=== PATIENT | female | born 1950 | race Caucasian/White ===

== ENCOUNTER 2017-10-15 12:18 | Emergency (ER) | payer OTHER, BC ==
--- OUTSIDE RECORDS SUMMARY | 2017-10-15 12:20 | XMS REPORT | Clinical Summary ---
:1950 Author Organization [facility] Address [address] [place] [address] Care Team Providers Name Role Phone Tyson Ocampo MD Primary Care Provider Allergies Active Allergy Reactions Severity Noted Date Comments Lisinopril Anaphylaxis High 01/31/2016 Penicillins Itching 01/31/2016 Sulfa (Sulfonamide Antibiotics) Anaphylaxis High 01/31/2016 Current Medications Prescription Sig. Disp. Refills Start Date End Date Status atenolol (TENORMIN) TAKE 1 TABLET 60 tablet 3 10/10/2017 Active 25 MG BY MOUTH tabletIndications: TWICE A DAY Essential hypertension diphenoxylate-atrop Take 1 tablet 04/15/2017 Discontinued ine (LOMOTIL) by mouth. 2.5-0.025 mg per tablet LOPERAMIDE HCL Take by 04/15/2017 Discontinued (IMODIUM A-D ORAL) mouth. atenolol (TENORMIN) Take 1 tablet 60 tablet 2 04/15/2017 07/09/2017 Discontinued 25 MG (25 mg total) tabletIndications: by mouth 2 Essential (two) times a hypertension day for 30 days. atenolol (TENORMIN) TAKE 1 TABLET 60 tablet 2 07/09/2017 10/10/2017 Discontinued 25 MG BY MOUTH tabletIndications: TWICE A DAY Essential hypertension Active Problems Problem Noted Date LFT elevation 04/17/[address] 09/05/2016 HLD (hyperlipidemia) 01/31/2016 Fatty liver 01/31/2016 Overview: [facility] 02/11, Gallstones 01/31/2016 Overview: [facility] 02/11, asymptomatic Chronic radiation cystitis 01/31/2016 Overview: [facility] CKD (chronic kidney disease) stage 3, GFR 30-59 ml/min 01/31/2016 Overview: Onset: 02/23/2015 - 1.8 Essential hypertension 01/31/2016 History of DVT (deep vein thrombosis) 02/22/2014 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 Espana at [facility] Cycle 4 04/26/2013 Done Cycle 5 05/17/2013 Done 05/27/2013 - presented to [facility] with ruptured diverticulitis, s/p exlap, loop colostomy (SANAM/Julio César); cycle 6 not given due to ruptured diverticulitis 10/2013 - s/p exlap, colostomy reversal by Dr. Colby at [facility], no evidence of disease recurrence at time of surgery 02/01/2014 - s/p exlap, end colostomy for colovesical fistula with Dr. Colby Resolved Problems Problem Noted Date Resolved Date Colostomy in place 09/05/2016 04/15/2017 Encounters Date Type Specialty Care Team Description 10/10/2017 Refill Family Tyson Rosario Essential hypertension 07/31/2017 Office Visit Tyson Lawrence, Essential hypertension (Primary Dx); Hyperlipidemia, unspecified hyperlipidemia type; CKD (chronic kidney disease) stage 3, GFR 30-59 ml/min; Chronic radiation cystitis; History of endometrial cancer; Excoriation 07/09/2017 Refill Tyson Lawrence Essential hypertension 04/30/2017 Office Visit Tyson Lawrence, Well adult health check (Primary Dx); Depression screen; Essential hypertension; CKD (chronic kidney disease) stage 3, GFR 30-59 ml/min; LFT elevation; Excoriation; Bilateral impacted cerumen 04/15/2017 Lab Lab Tyson Ocampo, Essential hypertension; Hyperlipidemia, unspecified hyperlipidemia type 04/15/2017 Office Visit Family Tyson Rosario Essential hypertension (Primary Dx); History of endometrial cancer; Hyperlipidemia, unspecified hyperlipidemia type; Creatinine elevation; Sebaceous cyst; History of DVT (deep vein thrombosis) after 10/14/2016 Immunizations Name Dates Previously Given Next Due Pneumococcal Conjugate 11/11/2012 Pneumococcal Conjugate 13-Valent 01/31/2016 Td 09/05/2016 Family History Medical History Relation Name Comments Coronary artery disease Brother Diabetes Brother Diabetes Brother Cancer Father lymphoma Stroke Mother Diabetes Sister Relation Name Status Comments Brother Brother Alive Brother Alive Father Mother Sister Alive Social History Tobacco Use Types Packs/Day Years Used Date Never Smoker Smokeless Tobacco: Never Used Tobacco Cessation: Counseling Given: Yes Alcohol Use Drinks/Week oz/Week Comments No Sex Assigned at Date Recorded Not on file Last Filed Vital Signs Vital Sign Reading Time Taken Blood Pressure 147/74 07/31/2017 9:32 AM [employer] PUMP OPERATOR Pulse 60 07/31/2017 9:32 AM [employer] PUMP OPERATOR Temperature 36.3 C (97.4 F) 07/31/2017 9:32 AM [employer] PUMP OPERATOR Respiratory Rate 17 07/31/2017 9:32 AM T[employer] AM[employer]IA PUMP OPERATOR Oxygen Saturation 97% 07/31/2017 9:32 AM T[employer] AM[employer] PUMP OPERATOR Inhaled Oxygen Concentration - - Weight 91.2 kg (201 lb) 07/31/2017 9:32 AM TAR AND AM[employer]IA PUMP OPERATOR Height 152.4 cm (5') 07/31/2017 9:32 AM TAR AND AM[employer]IA PUMP OPERATOR Body Mass Index 39.26 07/31/2017 9:32 AM TAR [employer] PUMP OPERATOR Plan of Treatment Date Type Specialty Care Team Description 01/28/2018 Office Visit Family Medicine Tyson Ocampo MD [address] [facility] [address] [place] [address] Health Maintenance Due Date Last Done Comments MAMMOGRAM 1998 ZOSTER VACCINE 2008 INFLUENZA VACCINE 03/16/2018 Postponed from 01/28/2018 (Patient Refused) DXA SCAN 03/13/2019 03/13/2017 COLONOSCOPY 06/05/2026 06/05/2016 PNEUMOCOCCAL POLYSACCHARIDE Completed 01/31/2016, VACCINE AGE 65 AND OVER 11/11/2012, 11/11/2012 PNEUMOCOCCAL-13 Completed 01/31/2016 Results Microalbumin / creatinine urine ratio (04/15/2017 10:57 AM) Component Value Ref Range Creatinine, urine, random 78 20 - 320 mg/dL Microalbumin, urine 1.0 See Note: mg/dL Comment: Reference Range: Reference Range Not established Microalbumin/creatinine ratio 13 <30 mcg/mg creat Comment: The ADA defines abnormalities in albumin excretion as follows: Category Result (mcg/mg creatinine) Normal<30 Microalbuminuria 30-299 Clinical albuminuria > OK=603 The ADA recommends that at least two of three specimens collected within a 3-6 month period be abnormal before considering a patient to be within a diagnostic category. Specimen Performing Laboratory [facility] Urinalysis, automated with microscopy (04/15/2017 10:57 AM) Component Value Ref Range Color, UA YELLOW YELLOW Appearance CLEAR CLEAR Specific gravity, urine 1.013 1.001 - 1.035 pH, urine 5.5 5.0 - 8.0 Glucose, urine NEGATIVE NEGATIVE Bilirubin, UA NEGATIVE NEGATIVE Ketones, UA NEGATIVE NEGATIVE Occult blood, urine NEGATIVE NEGATIVE Protein, UA NEGATIVE NEGATIVE Nitrite, UA NEGATIVE NEGATIVE Leukocyte esterase, UA NEGATIVE NEGATIVE WBC, UA NONE SEEN < OR=5 /HPF RBC, UA NONE SEEN < OR=2 /HPF Squamous epithelial cells, UA NONE SEEN < OR=5 /HPF Bacteria, UA NONE SEEN NONE SEEN /HPF Hyaline casts, UA NONE SEEN NONE SEEN /LPF Specimen Performing Laboratory [facility] Thyroid stimulating hormone (04/15/2017 10:57 AM) Component Value Ref Range TSH 1.90 0.40 - 4.50 mIU/L Specimen Performing Laboratory [facility] T4, free (04/15/2017 10:57 AM) Component Value Ref Range T4, free 1.1 0.8 - 1.8 ng/dL Specimen Performing Laboratory [facility] Lipid panel (04/15/2017 10:57 AM) Component Value Ref Range Cholesterol, total 194 <200 mg/dL HDL cholesterol 56 >50 mg/dL Triglycerides 118 <150 mg/dL LDL cholesterol calculated 115 (H) mg/dL (calc) Comment: Reference range: <100 Desirable range <100 mg/dL for patients with CHD or diabetes and <70 mg/dL for diabetic patients with known heart disease. LDL-C is now calculated using the Cristian-Herman calculation, which is a validated novel method providing better accuracy than the Friedewald equation in the estimation of LDL-C. Cristian SS et al. LIZ. 2013;310(19): 2007-3548 (http://education.[employer]faq/FSI992) Cholesterol/HDL ratio 3.5 <5.0 (calc) Non-HDL cholesterol 138 (H) <130 mg/dL (calc) Comment: For patients with diabetes plus 1 major ASCVD risk factor, treating to a non-HDL-C goal of <100 mg/dL (LDL-C of <70 mg/dL) is considered a therapeutic option. Specimen Performing Laboratory [facility] Comprehensive metabolic panel (04/15/2017 10:57 AM) Component Value Ref Range Glucose 104 (H) 65 - 99 mg/dL Comment: Fasting reference interval For someone without known diabetes, a glucose value between 100 and 125 mg/dL is consistent with prediabetes and should be confirmed with a follow-up test. BUN, whole blood 28 (H) 7 - 25 mg/dL Creatinine 1.25 (H) 0.50 - 0.99 mg/dL Comment: For patients >49 years of age, the reference limit for Creatinine is approximately 13% higher for people identified as -Turkmen. EGFR Non-Afr. Turkmen 44 (L) > OR=60 mL/min/1.73m2 EGFR 51 (L) > OR=60 mL/min/1.73m2 BUN/creatinine ratio 22 6 - 22 (calc) Sodium 139 135 - 146 mmol/L Potassium 4.9 3.5 - 5.3 mmol/L Chloride 102 98 - 110 mmol/L CO2 29 20 - 31 mmol/L Calcium 10.1 8.6 - 10.4 mg/dL Protein 7.7 6.1 - 8.1 g/dL Albumin, S 4.0 3.6 - 5.1 g/dL Globulin, total 3.7 1.9 - 3.7 g/dL (calc) Albumin/globulin ratio 1.1 1.0 - 2.5 (calc) Total bilirubin 0.9 0.2 - 1.2 mg/dL Alkaline phosphatase 63 33 - 130 U/L AST 24 10 - 35 U/L ALT 31 (H) 6 - 29 U/L Specimen Performing Laboratory [facility] after 10/14/2016 Insurance Payer Benefit Plan / Group Subscriber ID Type Phone Address MEDICARE MEDICARE PART A AND B xxxxxxxxxx Medicare [place], [place] BCBS BCBS PAR/TRAD PLAN xxxxxxxxxxxx Indemnity
--- OUTSIDE RECORDS SUMMARY | 2017-10-15 12:20 | XMS REPORT | Clinical Summary ---
:1950 Author Organization [facility] Address [address] [place] [address] Phone Care Team Providers Name Role Phone Unavailable Primary Care Provider Unavailable Allergies Active Allergy Reactions Severity Noted Date Comments Lisinopril Shortness Of Breath High 10/02/2015 SOB, Tongue swelling Penicillins Anaphylaxis High 10/02/2015 Sulfa (Sulfonamide Shortness Of Breath High 10/31/2015 Antibiotics) Sulfasalazine Shortness Of Breath, High 10/02/2015 Anaphylaxis Adhesive Other (See Comments) 09/20/2016 Skin is very sensitive to tearing Current Medications Prescription Sig. Disp. Refills Start Date End Date Status BIOTIN ORAL Take 5,000 mcg by Active mouth. calcium carbonate-vitamin Take by mouth. Active D3 600 mg(1,500mg) -400 unit Chew Active Problems Problem Noted Date History of creation of ostomy ([facility]) 09/20/2016 Colovesical fistula 09/20/2016 Ileostomy status ([facility]) 09/20/2016 Dehydration 12/03/2015 Acute kidney injury, inability to tolerate po, s/p parastomal hernia rpr, 10/2015 ventral hernia rpr w/ mesh, & takedown colovesical fistula, takedown colostomy w/ colorectal anastomosis 11/03/2015 Parastomal hernia s/p rpr, ventral hernia s/p rpr w/ mesh, & fistula 11/02 s/p EDGARD, exlap w/ takedown colovesical fistula, takedown colostomy w/ colorectal anastomosis, diverting loop ileostomy (11/03/15) Social History Tobacco Use Types Packs/Day Years Used Date Former Smoker 1 15 Quit: 06/04/2013 Smokeless Tobacco: Never Used Alcohol Use Drinks/Week oz/Week Comments No Sex Assigned at Date Recorded Not on file Last Filed Vital Signs Not on file Plan of Treatment Not on file Implants Implanted Type Area Networks Software Consultant Device Expiration Model / Identifier Date Serial / Lot Seprafilm Sunny Jennings 5x6in 4301-02 - [id number] Cement/Terry N/A: GENZYME SONNY : 08/27/2017 4301-02 / Implanted: Qty: 3 on 11/03/2015 by Raúl Chatman MD ler/Adhesi Abdomen BIO- SURG / ve [id number] Grft Xenmatrix [id number] - [id number] Tissue N/A: GALLITO BARD:DAVOL [id number] / Implanted: Qty: 1 on 11/03/2015 by Raúl Chatman MD Graft/Subs Abdomen / titute [id number] Results Not on fileafter 10/14/2016
--- OUTSIDE RECORDS SUMMARY | 2017-10-15 12:21 | XMS REPORT ---
:1950 Author Organization [facility] Address [address] [place] [address] Dr. Goodwin [address] [place] [id number] Care Team Providers Name Role Phone ISMA CHATMAN Unavailable Unavailable Problems This patient has no known problems. Allergies, Adverse Reactions, Alerts This patient has no known allergies or adverse reactions. Medications This patient has no known medications. Results Test Description Test Time Test Comments Text Results Atomic Results Result Comments TISSUE 2016-09-25 Surgical Pathology Report Case: [id number] EXAM 12:05:00 Renny hugo Provider: Isma Chatman MD Ordering Provider: Isma Chatman MD Ordering Location: [facility] Collected: 09/20/2016 1031 SERVICES Pathologist: Ashley Brown MD Received: 09/20/2016 1157 Specimens: A) - Ileostomy B ) - Hernia, PARASTOMAL HERNIA A. ILEOSTOMY, TAKEDOWN : - ENTEROCUTANEOUS MUCOSA WITH FIBROSIS AND CHRONIC INFLAMMATION, CONSISTENT WITH ILEOSTOMYB. SOFT TISSUE, "POSTOSTMAL HERNIA", REPAIR: - FIBROADIPOSE TISSUE CONSISTENT WITH HERNIA SAC Signing Pathologist Direct Phone Line: [phone], [phone] fistulaA. Ileostomy tissueB. Parastomal herniaSpecimen is received in two containers of formalin both labeled with the patient's information.Specimen A: Labeled "ileostomy tissue" consists of a segment of bowel measuring 5 cm in length by 3 cm in circumference. Attached to one end is stanford sanchez skin measuring 2.2 x 1 x 0.5 cm. Grossly no suspicious are seen.Section code: A1, resection margin en face; A2, A3, sales representative of small bowel and skin.Specimen B: Labeled "parastomal hernia" consists of a segment of stanford, hemorrhagic, fibromembranous tissue with associated fat measuring 2.7 x 1 x 0.5 cm. Speedboat Operator sections are submitted in B1. CG/Axel and B. Performed. BASIC METABOLIC PANEL 2016-09-21 05:31:00 Test Item Value Reference Range Comments SODIUM (BEAKER) (test 134 meq/L 136-145 kzfo=298) POTASSIUM (BEAKER) (test 3.9 meq/L 3.5-5.1 hvcm=464) CHLORIDE (BEAKER) (test 106 meq/L 98-107 qjov=221) CO2 (BEAKER) (test vdik=286) 20 meq/L 22-29 BLOOD UREA NITROGEN (BEAKER) 16 mg/dL 7-21 (test pjiz=371) CREATININE (BEAKER) (test 1.14 mg/dL 0.57-1.25 pmri=240) GLUCOSE RANDOM (BEAKER) 153 mg/dL 70-105 (test fovr=931) CALCIUM (BEAKER) (test 7.9 mg/dL 8.4-10.2 ujej=935) EGFR (BEAKER) (test 47 mL/min/1.73 sq m ESTIMATED GFR IS NOT zkxo=5738) ACCURATE CREATININE CLEARANCE IN PREDICTING GLOMERULAR FILTRATION RATE. ESTIMATED GFR IS NOT APPLICABLE FOR DIALYSIS PATIENTS. [id number] 05:30:00 Test Item Value Reference Range Comments PHOSPHORUS (BEAKER) (test yxjy=140) 2.2 mg/dL 2.3-4.7 [id number] 05:30:00 Test Item Value Reference Range Comments MAGNESIUM (BEAKER) (test rvwu=482) 1.4 mg/dL 1.6-2.6 CBC (HEMOGRAM ONLY)2016-09-21 05:13:00 Test Item Value Reference Range Comments WHITE BLOOD CELL COUNT (BEAKER) (test oncs=547) 9.6 K/ L 4.0-10.0 RED BLOOD CELL COUNT (BEAKER) (test znad=881) 3.71 M/ L 4.00-5.00 HEMOGLOBIN (BEAKER) (test wfbm=886) 12.2 GM/DL 12.0-15.0 HEMATOCRIT (BEAKER) (test mnrg=703) 35.1 % 36.0-45.0 MEAN CORPUSCULAR VOLUME (BEAKER) (test xpxf=492) 94.7 fL 82.0-99.0 MEAN CORPUSCULAR HEMOGLOBIN (BEAKER) (test 32.9 pg 27.0-33.0 zdya=167) MEAN CORPUSCULAR HEMOGLOBIN CONC (BEAKER) (test 34.8 GM/DL 32.0-36.0 bgcr=291) RED CELL DISTRIBUTION WIDTH (BEAKER) (test 11.5 % 10.3-14.2 ecwh=579) PLATELET COUNT (BEAKER) (test drbe=732) 197 K/CU MM 150-430 MEAN PLATELET VOLUME (BEAKER) (test davp=271) 6.5 fL 6.5-10.5 NUCLEATED RED BLOOD CELLS (BEAKER) (test 0 /100 WBC 0-0 gdrg=508) [id number] 12:21:00 Test Item Value Reference Range Comments SODIUM (BEAKER) (test cvks=909) 137 meq/L 136-145 POTASSIUM (BEAKER) (test pmuy=957) 4.1 meq/L 3.5-5.1 CHLORIDE (BEAKER) (test dwbt=518) 109 meq/L 98-107 CO2 (BEAKER) (test kpal=181) 19 meq/L 22-29 BUN AND [id number] 12:21:00 Test Item Value Reference Range Comments BLOOD UREA NITROGEN 32 mg/dL 7-21 (BEAKER) (test ablt=444) CREATININE (BEAKER) (test 1.30 mg/dL 0.57-1.25 xqnf=205) EGFR (BEAKER) (test 41 mL/min/1.73 sq m ESTIMATED GFR IS NOT hxnh=4512) ACCURATE CREATININE CLEARANCE IN PREDICTING GLOMERULAR FILTRATION RATE. ESTIMATED GFR IS NOT APPLICABLE FOR DIALYSIS PATIENTS. [id number] 11:38:00 Test Item Value Reference Range Comments HEMOGLOBIN (BEAKER) (test nssh=604) 12.3 GM/DL 12.0-15.0
--- NOTE | 2017-10-15 14:06 | RAD REPORT ---
EXAM DESCRIPTION: RAD - Foot Left 3 View - 10/15/2017 1:43 pm CLINICAL HISTORY: Persistent foot pain after trauma 2 days earlier COMPARISON: None. FINDINGS: No fracture, dislocation or periosteal reaction. No acute or destructive bony process. B union deformity with valgus angulation of the first phalanx noted. No erosive or spurring changes at the first MTP joint. Plantar and Achilles spurs are present. There degenerative changes at the dorsal margin of the tarsal metatarsal junction. Small bone density along the dorsum of the tarsal metatars al junction is probably degenerative. An acute avulsion is unlikely. Plantar and Achilles spurs are present. No air or foreign body in the soft tissues. IMPRESSION: No acute fractures seen. Degenerative changes are present along the dorsum of the foot at the tarsal metatarsal junction. Smal l irregular bone density at this location is probably not an acute avulsion. Plantar and Achilles spurring. Concerns for occult fracture or bone bruising can be addressed with MR imaging. Bunion deformity first MTP joint.
--- NOTE | 2017-10-15 15:49 | ER ---
Nurse's Notes [facility] Name: Charlotte Maer Age: 67 yrs Sex: Female : 1950 Arrival Date: 10/15/2017 Time: 12:26 Bed 9 Private MD: Diagnosis: Pain in left foot Presentation: 10/15 12:30 Presenting complaint: Patient states: my L foot just started hurting yesterday after i hj stepped on a crack on the road, the pain is more on top of my foot;. Transition of care: patient was not received from another setting of care. Onset of symptoms was October 15, 2017. Care prior to arrival: None. 12:30 Method Of Arrival: Ambulatory 12:30 Acuity: PATRICA 4 hj Triage Assessment: 12:33 General: Appears in no apparent distress. uncomfortable, Behavior is calm, cooperative, hj appropriate for age. Pain: Complains of pain in left foot. Musculoskeletal: Circulation, motion, and sensation intact. Capillary refill. 12:35 Injury Description:. hj Historical: - Allergies: 12:33 PENICILLINS; hj 12:33 Lisinopril; hj 12:33 Sulfa (Sulfonamide Antibiotics); hj - Home Meds: 12:33 atenolol 25 mg oral tab 1 tab 2 times per day [Active]; Loperamide Oral [Active]; hj - PMHx: 12:33 Hypertension; hj - PSHx: 12:33 abdominal; hj Screenin:00 Abuse screen: Denies threats or abuse. Denies injuries from another. Nutritional sg screening: No deficits noted. Tuberculosis screening: No symptoms or risk factors identified. Never had TB. Fall Risk None identified. Vital Signs: 12:34 BP 124 / 76; Pulse 71; Resp 18; Temp 97.8(TE); Pulse Ox 100% on R/A; Weight 88.9 kg; hj Height 5 ft. 0 in. (152.40 cm); Pain 7/10; 15:50 BP 122 / 72; Pulse 70; Resp 18; Pulse Ox 99% on R/A; Pain 7/10; sg 12:34 Body Mass Index 38.28 (88.90 kg, 152.40 cm) hj ED Course: 12:26 Patient arrived in ED. mr 12:31 Triage completed. hj 12:35 Arm band placed on left wrist. hj 12:37 Misty, Mey, FILM PRINTER-C is PHCP. snw 12:37 Saroj Youngblood MD is Attending Physician. snw 13:38 X-ray completed. Portable x-ray completed in exam room. Patient tolerated procedure ml well. 13:39 XRAY Foot LEFT 3 View In Process Unspecified. EDMS 15:55 Patient has correct armband on for positive identification. Bed in low position. Call sg light in reach. Pulse ox on. NIBP on. 16:00 Claus wrap to left foot Ortho shoe applied to left foot. sg 16:00 No provider procedures requiring assistance completed. Patient did not have IV access sg during this emergency room visit. Administered Medications: No medications were administered Outcome: 15:48 Discharge ordered by . snw 15:55 Discharged to home via wheelchair. sg 15:55 Condition: good 15:55 Discharge instructions given to patient, Instructed on discharge instructions, follow up and referral plans. safety practices, Demonstrated understanding of instructions, follow-up care. 16:00 Patient left the ED. sg Signatures: Dispatcher [employer] EDMS Juan C Marrufo, RN RN Mey Jay FNP-C FILM PRINTER-Csnw Mariela Peoples mr Seaman, Elayne Paul Montaño RN RN Corrections: (The following items were deleted from the chart) 12:31 12:30 Presenting complaint: Patient states: my L foot just started hurting yesterday, hj the pain is more on top of my foot; hj 12:35 12:34 Pulse 71bpm; Resp 18bpm; Pulse Ox 100% RA; Temp 97.8F Temporal; 88.9 kg; Height 5 hj ft. 0 in.; BMI: 38.2; Pain 7/10; hj
--- NOTE | 2017-10-15 15:49 | EDPHYS ---
Physician Documentation [facility] Name: Charlotte Alfaro Age: 67 yrs Sex: Female : 1950 Arrival Date: 10/15/2017 Time: 12:26 Bed 9 Private MD: ED Physician Saroj Youngblood HPI: 10/15 15:49 This 67 yrs old Female presents to ER via Ambulatory with complaints of Foot snw Injury. 15:49 The patient presents with an injury, pain, that is acute. The complaints affect the snw lateral aspect of left foot and medial aspect of left foot. Context: The problem was sustained outdoors, resulted from a mis-step, the patient can partially bear weight, the patient is able to ambulate. Onset: The symptoms/episode began/occurred suddenly, yesterday. Associated signs and symptoms: The patient has no apparent associated signs or symptoms. Severity of symptoms: At their worst the symptoms were moderate. The patient has not experienced similar symptoms in the past. The patient has been recently seen by a physician: with different complaint(s). pt declines pain medications. Just wants to see if foot is fractured. Historical: - Allergies: 12:33 PENICILLINS; hj 12:33 Lisinopril; 12:33 Sulfa (Sulfonamide Antibiotics); hj - Home Meds: 12:33 atenolol 25 mg oral tab 1 tab 2 times per day [Active]; Loperamide Oral [Active]; hj - PMHx: 12:33 Hypertension; hj - PSHx: 12:33 abdominal; hj ROS: 15:50 Constitutional: Negative for fever, chills, and weight loss, Eyes: Negative for injury, snw pain, redness, and discharge, ENT: Negative for injury, pain, and discharge, Neck: Negative for injury, pain, and swelling, Cardiovascular: Negative for chest pain, palpitations, and edema, Respiratory: Negative for shortness of breath, cough, wheezing, and pleuritic chest pain, Abdomen/GI: Negative for abdominal pain, nausea, vomiting, diarrhea, and constipation, Back: Negative for injury and pain, : Negative for injury, bleeding, discharge, and swelling, Skin: Negative for injury, rash, and discoloration, Neuro: Negative for headache, weakness, numbness, tingling, and seizure. 15:50 MS/extremity: Positive for injury or acute deformity, pain. Exam: 15:48 Constitutional: This is a well developed, well nourished patient who is awake, alert, snw and in no acute distress. Head/Face: Normocephalic, atraumatic. Eyes: Pupils equal round and reactive to light, extra-ocular motions intact. Lids and lashes normal. Conjunctiva and sclera are non-icteric and not injected. Cornea within normal limits. Periorbital areas with no swelling, redness, or edema. ENT: Nares patent. No nasal discharge, no septal abnormalities noted. Tympanic membranes are normal and external auditory canals are clear. Oropharynx with no redness, swelling, or masses, exudates, or evidence of obstruction, uvula midline. Mucous membranes moist. Neck: Trachea midline, no thyromegaly or masses palpated, and no cervical lymphadenopathy. Supple, full range of motion without nuchal rigidity, or vertebral point tenderness. No Meningismus. Chest/axilla: Normal chest wall appearance and motion. Nontender with no deformity. No lesions are appreciated. Cardiovascular: Regular rate and rhythm with a normal S1 and S2. No gallops, murmurs, or rubs. Normal PMI, no JVD. No pulse deficits. Respiratory: Lungs have equal breath sounds bilaterally, clear to auscultation and percussion. No rales, rhonchi or wheezes noted. No increased work of breathing, no retractions or nasal flaring. Abdomen/GI: Soft, non-tender, with normal bowel sounds. No distension or tympany. No guarding or rebound. No evidence of tenderness throughout. Back: No spinal tenderness. No costovertebral tenderness. Full range of motion. Skin: Warm, dry with normal turgor. Normal color with no rashes, no lesions, and no evidence of cellulitis. Neuro: Awake and alert, GCS 15, oriented to person, place, time, and situation. Cranial nerves II-XII grossly intact. Motor strength 5/5 in all extremities. Sensory grossly intact. Cerebellar exam normal. Normal gait. Psych: Awake, alert, with orientation to person, place and time. Behavior, mood, and affect are within normal limits. 15:48 Musculoskeletal/extremity: Extremities: grossly normal except: noted in the left foot: tenderness, ROM: no acute changes, Circulation is intact in all extremities. Sensation intact. Compartment Syndrome exam of affected extremity: is normal. Vital Signs: 12:34 BP 124 / 76; Pulse 71; Resp 18; Temp 97.8(TE); Pulse Ox 100% on R/A; Weight 88.9 kg; hj Height 5 ft. 0 in. (152.40 cm); Pain 7/10; 15:50 BP 122 / 72; Pulse 70; Resp 18; Pulse Ox 99% on R/A; Pain 7/10; sg 12:34 Body Mass Index 38.28 (88.90 kg, 152.40 cm) hj MDM: 15:23 Patient medically screened. snw 15:48 Data reviewed: vital signs, nurses notes. Data interpreted: Pulse oximetry: on room air snw is 100 %. Interpretation: normal. Counseling: I had a detailed discussion with the patient and/or guardian regarding: the historical points, exam findings, and any diagnostic results supporting the discharge/admit diagnosis, radiology results, the need for outpatient follow up, to return to the emergency department if symptoms worsen or persist or if there are any questions or concerns that arise at home. Special discussion: Based on the history and exam findings, there is no indication for further emergent testing or inpatient evaluation. I discussed with the patient/guardian the need to see the bibliographic services specialist for further evaluation of the symptoms. I discussed with the patient/guardian the need to see the primary care provider for further evaluation of the symptoms. 10/15 12:35 Order name: XRAY Foot LEFT 3 View; Complete Time: 14:07 hj 10/15 15:46 Order name: Claus wrap-joint; Complete Time: 16:00 snw 10/15 15:46 Order name: Post-op Orthopedic Shoe; Complete Time: 15:59 snw Administered Medications: No medications were administered Disposition: 10/15/17 15:48 Discharged to Home. Impression: Pain in left foot. - Condition is Stable. - Discharge Instructions: Elastic Bandage and RICE, Cast or Splint Care, Musculoskeletal Pain, Cryotherapy, Heat Therapy. - Work release form, Medication Reconciliation Form, Thank You Letter, Antibiotic Education, Prescription Opioid Use form. - Follow up: Private Physician; When: 2 - 3 days; Reason: Recheck today's complaints, Continuance of care, Re-evaluation by your physician. Follow up: Emergency Department; When: As needed; Reason: Worsening of condition. Addendum: 10/18/2017 06:14 Co-signature as Attending Physician, Saroj Youngblood MD Available for consultation at p s1 all times. . Signatures: Dispatcher [employer] EDJuan C Patel, RN RN Mey Brady, BASKET PATCHER-C BASKET PATCHER-Csnw Paul Cummins RN RN hj Singer, Phillip, MD MD ps1
== END 2017-10-15 16:00 | disposition home or self-care (01) ==
LOC: ER 12:18
DX: M79.672 Pain in left foot (principal); I10 Essential (primary) hypertension; X58.XXXA Exposure to other specified factors, initial encounter; Y93.89 Activity, other specified; Y92.89 Other specified places as the place of occurrence of the external cause; Z88.0 Allergy status to penicillin; Z88.2 Allergy status to sulfonamides; Z88.8 Allergy status to other drugs, medicaments and biological substances
CPT/HCPCS: 99283

== ENCOUNTER → 2023-08-05 | Emergency (ER) | payer OTHER, BC ==
[~2023-08-05] MED LIST: DERMABOND SKIN ADHESIVE TOP ONE; TDAP (DIPHTH,PERTUSS(ACELL),TET VAC) 0.5 ML VIAL IMVAC ONE
--- NOTE | 2023-08-05 14:02 | RAD REPORT ---
EXAM DESCRIPTION: RAD - Forearm Right - 08/05/2023 1:55 pm CLINICAL HISTORY: PAIN COMPARISON: <Comparisons> FINDINGS: No acute fracture or dislocation is seen.
--- NOTE | 2023-08-05 14:02 | RAD REPORT ---
EXAM DESCRIPTION: RAD - Humerus Right - 08/05/2023 1:55 pm CLINICAL HISTORY: PAIN COMPARISON: <Comparisons> FINDINGS: No acute fracture or dislocation seen.
--- NOTE | 2023-08-05 14:22 | RAD REPORT ---
EXAM DESCRIPTION: CT - [id number] - 08/05/2023 2:02 pm CLINICAL HISTORY: Trauma, head and neck injury. TRAUMA COMPARISON: <Comparisons> TECHNIQUE: Axial 5 mm thick images of the head were obtained. Axial 2 mm thick images of the cervical spine were obtained with sagittal and coronal reconstruction images generated and reviewed. All CT scans are performed using dose optimization technique as appropriate and may include automated exposure control or mA/KV adjustment according to patient size. FINDINGS: CT HEAD WITHOUT CONTRAST: No acute hemorrhage, hydrocephalus or extra-axial collection is identified.Mild generalized brain atr ophy.No areas of brain edema or midline shift. The paranasal sinuses and mastoids are clear.The calvarium is intact. CT CERVICAL SPINE WITHOUT CONTRAST: No fracture or subluxation.3 mm degenerative anterolisthesis of C4 on 5 noted. Small posterior osteop hyte is seen C5-6 and C6-7.No prevertebral soft tissues swelling is identified. Bilateral carotid ath erosclerosis. IMPRESSION: No acute intracranial or cervical spine findings.Moderate mid and lower cervical degener ative changes. Bilateral carotid atherosclerosis.
--- NOTE | 2023-08-05 14:55 | ER ---
Nurse's Notes [facility] Name: Corrina Alfaro Age: 73 yrs Sex: Female : 1950 Arrival Date: 08/05/2023 Time: 13:09 Bed 13 Private MD: Diagnosis: Fall on same level from slipping, tripping and stumbling without subsequent striking against object;Unspecified injury of head, initial encounter;Facial Laceration/ Laceration without foreign body of cheek and temporomandibular area;Abrasion of right forearm-skin tear;Pain in right arm Presentation: 08/05 13:17 Chief complaint: EMS states: FALL IN PARKING LOT, R BROW LAC, R FA SKIN TEAR, NO LOC. bp Coronavirus screen: At this time, the client does not indicate any symptoms associated with coronavirus-19. Ebola Screen: No symptoms or risks identified at this time. Initial Sepsis Screen: Does the patient meet any 2 criteria? No. Patient's initial sepsis screen is negative. Does the patient have a suspected source of infection? No. Patient's initial sepsis screen is negative. Risk Assessment: Do you want to hurt yourself or someone else? Patient reports no desire to harm self or others. Onset of symptoms was August 05, 2023 at 13:00. 13:17 Method Of Arrival: EMS: [facility] bp 13:17 Acuity: PATRICA 3 bp Triage Assessment: 13:18 General: Appears in no apparent distress. Behavior is calm, cooperative, appropriate bp for age. Pain: Complains of pain in head. Historical: - Allergies: 13:18 Lisinopril; bp 13:18 PENICILLINS; bp 13:18 Sulfa (Sulfonamide Antibiotics); bp - Home Meds: 13:18 loperamide Oral [Active]; atenolol 25 mg Oral tab 1 tab 2 times per day [Active]; bp - PMHx: 13:18 Hypertension; bp - Immunization history:: Adult Immunizations up to date. - Social history:: Smoking status: Patient denies any tobacco usage or history of. Vital Signs: 13:17 BP 143 / 78; Pulse 80; Resp 16; Temp 98; Pulse Ox 100% ; bp ED Course: 13:17 Patient arrived in ED. bp 13:17 Evelyn Jacobo FNP-C is [facility]. kb 13:17 Nolan Mays MD is Attending Physician. kb 13:18 Triage completed. bp 13:18 Arm band placed on. bp 13:57 Forearm Right XRAY In Process Unspecified. EDMS 13:57 Humerus Right XRAY In Process Unspecified. EDMS 14:02 Len Curiel, RN is Primary Nurse. bp 14:03 CT Head C Spine In Process Unspecified. EDMS 15:46 Patient did not have IV access during this emergency room visit. ap3 Administered Medications: 14:08 Drug: Boostrix Tdap IM 0.5 ml IM once; as a single dose Route: IM; Site: right deltoid; bp 14:49 Follow up: Response: No adverse reaction bp Outcome: 14:55 Discharge ordered by MD. kb 15:46 Discharged to home ambulatory, with family, ap3 15:46 Condition: good 15:46 Discharge instructions given to patient, Instructed on discharge instructions, follow up and referral plans. Demonstrated understanding of instructions, follow-up care, 15:47 Patient left the ED. ap3 Signatures: Dispatcher [employer] EDEvelyn Haney FNP-C FNP-Len Cabrera, RN RN Jessenia Sosa RN RN ap3
--- NOTE | 2023-08-05 14:55 | EDPHYS ---
Physician Documentation [facility] [place], [place] Name: Corrina Maer Age: 73 yrs Sex: Female : 1950 Arrival Date: 08/05/2023 Time: 13:09 Bed 13 Private MD: ED Physician Nolan Mays HPI: 08/05 14:28 This 73 yrs old Female presents to ER via EMS with complaints of Fall Injury. kb 14:28 Patient is 73-year-old female who tripped over a parking curb [place] [facility] [place] [facility] [place] and fell just prior to arrival. Patient reports she landed on right arm and hit her head. Denies any other injuries. Reports pain to right forearm, right shoulder and headache. Skin tear to right forearm and small laceration that is well-approximated above right eyebrow. denies LOC. Historical: - Allergies: 13:18 Lisinopril; bp 13:18 PENICILLINS; bp 13:18 Sulfa (Sulfonamide Antibiotics); bp - Home Meds: 13:18 loperamide Oral [Active]; atenolol 25 mg Oral tab 1 tab 2 times per day [Active]; bp - PMHx: 13:18 Hypertension; bp - Immunization history:: Adult Immunizations up to date. - Social history:: Smoking status: Patient denies any tobacco usage or history of. ROS: 14:27 Constitutional: Negative for fever, chills, and weight loss, kb 14:27 MS/extremity: Positive for pain, of the right arm, 14:27 Skin: Positive for laceration(s), 14:27 Neuro: Positive for headache, 14:27 All other systems are negative, Exam: 14:27 Constitutional: This is a well developed, well nourished patient who is awake, alert, kb and in no acute distress. Head/Face: Normocephalic, atraumatic. ENT: Moist Mucous membranes Neck: Trachea midline, no thyromegaly or masses palpated, and no cervical lymphadenopathy. Supple, full range of motion without nuchal rigidity, or vertebral point tenderness. No Meningismus. Cardiovascular: Regular rate Respiratory: Respirations even and unlabored. No increased work of breathing. Talking in full sentences Abdomen/GI: Soft, non-tender. No distention MS/ Extremity: Pulses equal, no cyanosis. Neurovascular intact. Full, normal range of motion. Neuro: Awake and alert, GCS 15, oriented to person, place, time, and situation. Moves all extremities. Normal gait. 14:27 Skin: injury, laceration(s), the wound is approximately 1.5 cm(s), of the just above right eyebrow, that can be described as clean, no foreign body, linear, without bleeding, skin tear to right forearm, Vital Signs: 13:17 BP 143 / 78; Pulse 80; Resp 16; Temp 98; Pulse Ox 100% ; bp Laceration: 14:54 Wound Repair of 1.5cm ( 0.6in ) subcutaneous laceration to just above right eyebrow. kb Linear shaped.. Distal neuro/vascular/tendon intact. Wound prep: Extensive cleansing by nurse. Skin closed with thin layer Adhesive skin closure using Dermabond. Dressed with steristrips. Patient tolerated well. MDM: 13:17 Patient medically screened. kb 13:18 Data reviewed: vital signs, nurses notes. Historians other than the Patient: EMS: [facility]. 14:28 Differential diagnosis: closed head injury, contusion, fracture, laceration. kb Counseling: I had a detailed discussion with the patient and/or guardian regarding the historical points, exam findings, and any diagnostic results supporting the discharge/admit diagnosis, radiology results, the need for outpatient follow up, a family practitioner, to return to the emergency department if symptoms worsen or persist or if there are any questions or concerns that arise at home. 08/05 13:24 Order name: CT Head C Spine; Complete Time: 14:26 kb 08/05 13:24 Order name: Forearm Right XRAY; Complete Time: 14:03 kb 08/05 13:24 Order name: Humerus Right XRAY; Complete Time: 14:03 kb 08/05 13:24 Order name: Dermabond; Complete Time: 14:08 kb 08/05 13:24 Order name: Wound Care: clean and dress skin tear right forearm; clean head laceration; kb Complete Time: 14:49 Administered Medications: 14:08 Drug: Boostrix Tdap IM 0.5 ml IM once; as a single dose Route: IM; Site: right deltoid; bp 14:49 Follow up: Response: No adverse reaction bp Disposition Summary: 08/05/23 14:55 Discharge Ordered Notes: Location: Home kb Condition: Stable kb Diagnosis - Fall on same level from slipping, tripping and stumbling without subsequent kb striking against object - Unspecified injury of head, initial encounter kb - Facial Laceration/ Laceration without foreign body of cheek and temporomandibular kb area - Abrasion of right forearm - skin tear kb - Pain in right arm kb Followup: kb - With: Emergency Department - When: As needed - Reason: Worsening of condition Followup: kb - With: Private Physician - When: 2 - 3 days - Reason: Recheck today's complaints, Continuance of care, Re-evaluation by your physician Discharge Instructions: - Discharge Summary Sheet kb - Musculoskeletal Pain kb - Facial Laceration, [id number] kb - Head Injury, Adult, [id number] kb Forms: - Medication Reconciliation Form kb - Thank You Letter kb - Antibiotic Education kb - Prescription Opioid Use kb - Patient Portal Instructions kb - Leadership Thank You Letter kb Signatures: Dispatcher [employer] EDMS Evelyn Jacobo, DIRECTOR [employer]-C DIRECTOR [employer]-Len Cabrera, RN RN bp Corrections: (The following items were deleted from the chart) 14:36 14:28 Patient is 73-year-old female who tripped over a parking curb in the [facility] parking lot and fell just prior to arrival. Patient reports she landed on right arm and hit her head. Denies any other injuries. Reports pain to right forearm, right shoulder and headache. Skin tear to right forearm and small laceration that is well-approximated above right eyebrow. kb
== END ==
LOC: ER 13:09
PROC: 0HQ1XZZ Repair Face Skin, External Approach (ICD-10-PCS; principal; 2023-08-05)
DX: S01.81XA Laceration without foreign body of other part of head, initial encounter (principal); S50.811A Abrasion of right forearm, initial encounter; M79.601 Pain in right arm; W01.0XXA Fall on same level from slipping, tripping and stumbling without subsequent striking against object, initial encounter; I10 Essential (primary) hypertension; Z88.0 Allergy status to penicillin; Z88.2 Allergy status to sulfonamides; Z88.8 Allergy status to other drugs, medicaments and biological substances
CPT/HCPCS: 70450; 72125